=== PATIENT | female | born 1950 | race Caucasian/White ===

== ENCOUNTER 2019-12-15 07:50 | Outpatient (CLI) | payer MEDICARE, SELFPAY ==
[2019-12-15 08:28] LABS: Alanine Aminotransferase 28 U/L (4-35); Albumin Level 4.2 g/dL (3.5-5.1); Alkaline Phosphatase 104 U/L (38-126); Aspartate Amino Transferase 35 U/L (14-36); Bilirubin,Total 0.6 mg/dL (0.2-1.3); Blood Urea Nitrogen 18 mg/dL (7-17); Calcium 9.2 mg/dL (8.4-10.2); Carbon Dioxide 30 mmol/L (22-30); Chloride 100 mmol/L (98-107); Estimated Glomerular Filt Rate > 60; Glucose 101 mg/dL (65-105); Potassium 3.6 mmol/L (3.4-5.0); Sodium 137 mmol/L (137-145)
[2019-12-15 08:39] LABS: Basophils Absolute Auto 0.1 K/mm3 (0.0-0.1); Basophils Percent Auto 0.7 % (0.2-1.2); Eosinophils Absolute Auto 0.3 K/mm3 (0-0.3); Eosinophils Percent Auto 3.6 % (0-4.4); Hematocrit 42.5 % (37.0-47.0); Hemoglobin 14.3 g/dL (12.0-15.0); Immature Granulocyte Absolute 0.02 K/mm3 (0.00-0.031); Immature Granulocyte Percent A 0.3 % (0-0.5); Lymphocytes Absolute Auto 1.85 K/mm3 (0.9-3.2); Mean Corpuscular HGB Conc 33.6 g/dl (32-36); Mean Corpuscular Hemoglobin 29.9 pg (26-34); Mean Corpuscular Volume 88.9 fl (80-100); Mean Platelet Volume 9.4 fl (7.4-10.4); Monocytes Absolute Auto 0.6 K/mm3 (0.1-0.6); Monocytes Percent Auto 7.7 % (2.6-8.5); Neutrophils Absolute Auto 4.7 K/mm3 (1.3-6.7); Neutrophils Percent Auto 62.7 % (45.5-73.1); Platelet Count Result 388 k/mm3 (150-375); Red Blood Count 4.78 M/mm3 (4.2-5.4); Red Cell Distribution Width 12.6 % (11.5-14.5); White Blood Count 7.4 K/mm3 (4.5-10.0)
== END 2019-12-15 07:51 | disposition home or self-care (01) ==
PROVIDERS: PCP Family Medicine; Visit Provider Family Medicine
DX: E78.2 Mixed hyperlipidemia (principal); I10 Essential (primary) hypertension; Z78.0 Asymptomatic menopausal state
CPT/HCPCS: 36415; 80053; 85025

== ENCOUNTER 2020-12-19 02:26 | Day surgery (SDC) | payer MEDICARE, SELFPAY ==
[2020-12-07 08:54] VITALS: BMI 27.4
--- NOTE | 2020-12-18 09:36 | WPDANESEPPF ---
Anes - Initial Pre Proc Eval Procedure: Operation Date: 12/19/20 11:30 Proposed Procedures p Esophagogastroduodenoscopy - Baldemar Barrios MD Date/Time: 12/18/20 09:36 Surgeon: Baldemar Barrios MD Pre Op Diagnosis: dysphagia, Schatzki's Ring Patient Data Age: 70 Gender: F Height: 1.57 m Weight: 68.1 kg Allergies Allergy/AdvReac Type Severity Reaction Status Date / Time No Known Allergies Allergy Verified 12/19/20 07:47 Home Medications Medication Instructions Recorded Confirmed Type albuterol sulfate 90 mcg/actuation 2 puff INHALATION Q4H PRN gm 05/19/19 12/19/20 History aerosol inhaler fexofenadine 60 mg tablet 60 mg PO Q12H 05/19/19 12/19/20 History beclomethasone dipropionate 80 2 inhalation INHALATION Q12H #31.8 01/26/20 12/19/20 Rx mcg/actuation HFA breath activated gm aerosol fluticasone propionate 50 1 spray NASAL DAILY #47.4 ml 01/26/20 12/19/20 Rx mcg/actuation nasal spray,suspension atorvastatin 10 mg tablet See Rx Instructions .ROUTE 08/02/20 12/19/20 Rx .COMPLEX #90 tablet hydrochlorothiazide 25 mg tablet See Rx Instructions .ROUTE 10/30/20 12/19/20 Rx .COMPLEX #90 tablet montelukast [Singulair] See Rx Instructions .ROUTE .COMPLEX 12/07/20 12/19/20 History Patient hx anesthesia problems: none Family hx anesthesia problems: none PMFSH Past Medical History Medical History Burn (~1970) Essential (primary) hypertension Fractured rib (~1967) Mild persistent asthma, uncomplicated Overweight Surgical History Surgical History H/O section (~1979) History of carpal tunnel release (~2011) History of colonoscopy (~10/07/07) History of hysterectomy (~2018) vag hys/ ovaries out Family History Family History Sibling Age: 71 Heart disease Sibling Age: 72 No problems noted. Grandparent Diabetes mellitus Father Hypertension Family history of elevated blood lipids Acute myocardial infarction Family history of coronary artery disease Family history of heart disease in male family member before age 55 Mother Hypertension Family history of elevated blood lipids Carcinoma of colon Family history of coronary artery disease Family history of heart disease in male family member before age 55 Sibling Hypertension Family history of elevated blood lipids Social History Social History Smoking packs per day: 1 Smoking cigarettes per day: 20.0 Smoking status: Former smoker Tobacco type: cigarettes Alcohol intake: current Substance use type: does not use Living arrangements: with family Gender identity (if verbalized by the patient): Female Anes - Eval Final PreProcedure Day of Procedure 12/18/20 09:36 Patient weight: overweight Heart: regular rate and rhythm Lungs: clear to auscultation and normal air movement Airway: Mallampati scale class II Neurological: alert and oriented Last oral intake: >/= 8 hours ASA classification: III Emergent: no Anesthetic plan: proceed Anesthesia type and monitoring: general GIVS and standard monitoring Informed Consent: The patient's anesthetic plan and its attendant risks and benefits were discussed with the patient/family/POA. Questions were solicited and answers provided to the satisfaction of the patient/family/POA.
[2020-12-19 07:49] VITALS: BP 141/80; PULSE 66; RESP 17; TEMP 35.7; O2SAT 99
[2020-12-19] MEDS: LACTATED RINGERS 1,000 ML 150 ML IV CONT (07:59)
--- NOTE | 2020-12-19 08:39 | PM.HPGS ---
History of Present Illness History of Present Illness Consent: Risks, benefits, and alternatives have been discussed and questions answered. Patient agrees to proceed with procedure. Chief complaint: dysphagia, Schatzki's Ring Narrative: Gustavo Herrera is a 70 year old female who has the sensation of difficulty swallowing. Carrots in particular will give her difficulty. Also hot cold beverages seem to cause her throat or esophagus to constrict, given her the sensation that there is an air bubble in there. she has not have to stop eating due to actual food impaction. She has an almost constant sensation of discomfort or burning in her throat. When she had a Schatzki's ring that we dilated a few years ago, all these symptoms had resolved afterwards Review of Systems Review of Systems: All systems reviewed & are unremarkable except as noted in HPI and below PMFSH Past Medical History Medical History Burn (~1970) Essential (primary) hypertension Fractured rib (~1967) Mild persistent asthma, uncomplicated Overweight Surgical History Surgical History H/O section (~1979) History of carpal tunnel release (~2011) History of colonoscopy (~10/07/07) History of hysterectomy (~2018) vag hys/ ovaries out Family History Family History Sibling Age: 71 Heart disease Sibling Age: 73 No problems noted. Grandparent Diabetes mellitus Father Hypertension Family history of elevated blood lipids Acute myocardial infarction Family history of coronary artery disease Family history of heart disease in male family member before age 55 Mother Hypertension Family history of elevated blood lipids Carcinoma of colon Family history of coronary artery disease Family history of heart disease in male family member before age 55 Sibling Hypertension Family history of elevated blood lipids Social History Social History Smoking packs per day: 1 Smoking cigarettes per day: 20.0 Smoking status: Former smoker Tobacco type: cigarettes Alcohol intake: current Substance use type: does not use Living arrangements: with family Gender identity (if verbalized by the patient): Female Meds Home Medications and Allergies Home Medications Medication Instructions Recorded Confirmed Type albuterol sulfate 90 mcg/actuation 2 puff INHALATION Q4H PRN gm 05/19/19 12/19/20 History aerosol inhaler fexofenadine 60 mg tablet 60 mg PO Q12H 05/19/19 12/19/20 History beclomethasone dipropionate 80 2 inhalation INHALATION Q12H #31.8 01/26/20 12/19/20 Rx mcg/actuation HFA breath activated gm aerosol fluticasone propionate 50 1 spray NASAL DAILY #47.4 ml 01/26/20 12/19/20 Rx mcg/actuation nasal spray,suspension atorvastatin 10 mg tablet See Rx Instructions .ROUTE 08/02/20 12/19/20 Rx .COMPLEX #90 tablet hydrochlorothiazide 25 mg tablet See Rx Instructions .ROUTE 10/30/20 12/19/20 Rx .COMPLEX #90 tablet montelukast [Singulair] See Rx Instructions .ROUTE .COMPLEX 12/07/20 12/19/20 History Allergies Allergy/AdvReac Type Severity Reaction Status Date / Time No Known Allergies Allergy Verified 12/19/20 07:47 Vital Signs Vital Signs - 24 hr 12/19/20 07:49 Temperature 35.7 C L Pulse Rate 66 Respiratory Rate 17 Blood Pressure 141/80 H Pulse Oximetry 99 Exam Const: General: alert Orientation/consciousness: patient oriented x3 Resp: Auscultation: clear to auscultation bilaterally Cardio: Rhythm: regular rhythm GI: GI Palp: Yes Soft to palpation and No Tenderness to palpation present (GI) Neuro: General: patient oriented x3 Assessment and Plan Assessment and plan (1) Dysphagia: Code(s): R13.10 - Dysphagia, unspecified Status: Acute
[2020-12-19 09:21] VITALS: BP 92/77; PULSE 64; RESP 21; O2SAT 97
[2020-12-19 09:31] VITALS: BP 119/69; PULSE 69; RESP 20; O2SAT 98
[2020-12-19 09:41] VITALS: BP 134/78; PULSE 58; RESP 20; O2SAT 99
== END 2020-12-19 09:48 | disposition home or self-care (01) ==
PROVIDERS: PCP Family Medicine; Visit Provider Internal Medicine Gastroenterology
PROC: 0DJ08ZZ Inspection of Upper Intestinal Tract, Via Natural or Artificial Opening Endoscopic (ICD-10-PCS; CPT 43235; principal; 2020-12-19 09:00)
DX: K22.2 Esophageal obstruction (principal); K44.9 Diaphragmatic hernia without obstruction or gangrene; K25.9 Gastric ulcer, unspecified as acute or chronic, without hemorrhage or perforation; I10 Essential (primary) hypertension; J45.30 Mild persistent asthma, uncomplicated; Z79.51 Long term (current) use of inhaled steroids; Z87.891 Personal history of nicotine dependence
CPT/HCPCS: 43239; 43249; 87081; C1726; J2704; J7120

== ENCOUNTER 2021-02-14 01:41 | Day surgery (SDC) | payer MEDICARE, SELFPAY ==
[2021-02-08 14:59] VITALS: BMI 28.6
--- NOTE | 2021-02-13 19:41 | PM.HPGS ---
History of Present Illness History of Present Illness Consent: Risks, benefits, and alternatives have been discussed and questions answered. Patient agrees to proceed with procedure. Chief complaint: Gastric Ulcer K25.9 Narrative: Gustavo Herrera is a 70 year old female returns for follow up EGD due to multiple gastric ulcers found 2 months ago. Review of Systems Review of Systems: All systems reviewed & are unremarkable except as noted in HPI and below PMFSH Past Medical History Medical History Burn (~1970) Essential (primary) hypertension Fractured rib (~1967) Mild persistent asthma, uncomplicated Overweight Surgical History Surgical History H/O section (~1979) History of carpal tunnel release (~2011) History of colonoscopy (~10/07/07) History of hysterectomy (~2018) vag hys/ ovaries out Family History Family History Sibling Age: 72 Heart disease Sibling Age: 73 No problems noted. Grandparent Diabetes mellitus Father Hypertension Family history of elevated blood lipids Acute myocardial infarction Family history of coronary artery disease Family history of heart disease in male family member before age 55 Mother Hypertension Family history of elevated blood lipids Carcinoma of colon Family history of coronary artery disease Family history of heart disease in male family member before age 55 Sibling Hypertension Family history of elevated blood lipids Social History Social History Smoking packs per day: 1 Smoking cigarettes per day: 20.0 Smoking status: Former smoker Tobacco type: cigarettes Alcohol intake: current Substance use: never Substance use type: does not use Living arrangements: with family Gender identity (if verbalized by the patient): Female Spiritual care concerns: No Meds Home Medications and Allergies Home Medications Medication Instructions Recorded Confirmed Type albuterol sulfate 90 mcg/actuation 2 puff INHALATION Q4H PRN gm 05/19/19 02/08/21 History aerosol inhaler fexofenadine 60 mg tablet 60 mg PO DAILY 05/19/19 02/08/21 History fluticasone propionate 50 1 spray NASAL DAILY #47.4 ml 01/26/20 02/08/21 Rx mcg/actuation nasal spray,suspension pantoprazole 40 mg tablet,delayed 40 mg PO QAM 28 Days #30 tablet 02/01/21 02/08/21 Rx release Qvar RediHaler 2 inhalation INHALATION DAILY 02/08/21 02/08/21 History atorvastatin 10 mg PO DAILY 02/08/21 02/08/21 History hydrochlorothiazide 25 mg PO DAILY 02/08/21 02/08/21 History montelukast 10 mg PO DAILY 02/08/21 02/08/21 History Allergies Allergy/AdvReac Type Severity Reaction Status Date / Time No Known Allergies Allergy Verified 02/14/21 07:19 Exam Const: General: alert Orientation/consciousness: patient oriented x3 Resp: Auscultation: clear to auscultation bilaterally Cardio: Rhythm: regular rhythm GI: GI Palp: Yes Soft to palpation and No Tenderness to palpation present (GI) Neuro: General: patient oriented x3 Assessment and Plan Assessment and plan (1) Gastric ulcer: Code(s): K25.9 - Gastric ulcer, unspecified as acute or chronic, without hemorrhage or perforation Status: Acute Assessment and Plan: EGD with possible biopsy or dilatation or cautery.
[2021-02-14 07:20] VITALS: BP 144/78; PULSE 63; RESP 18; TEMP 36.3; O2SAT 100; BMI 29.5
[2021-02-14] MEDS: LACTATED RINGERS 1,000 ML 150 ML IV CONT (07:29)
--- NOTE | 2021-02-14 07:59 | WPDANESEPPF ---
Anes - Initial Pre Proc Eval Procedure: Operation Date: 02/14/21 08:30 Proposed Procedures p Esophagogastroduodenoscopy - Baldemar Barrios MD Date/Time: 02/14/21 07:59 Surgeon: Baldemar Barrios MD Pre Op Diagnosis: Gastric Ulcer K25.9 Patient Data Age: 70 Gender: F Height: 1.57 m Weight: 73.4 kg Last Vital Signs Temp 36.3 C L 02/14/21 07:20 Pulse 63 02/14/21 07:20 Resp 18 02/14/21 07:20 BP 144/78 H 02/14/21 07:20 Pulse Ox 100 02/14/21 07:20 Allergies Allergy/AdvReac Type Severity Reaction Status Date / Time No Known Allergies Allergy Verified 02/14/21 07:19 Home Medications Medication Instructions Recorded Confirmed Type albuterol sulfate 90 mcg/actuation 2 puff INHALATION Q4H PRN gm 05/19/19 02/08/21 History aerosol inhaler fexofenadine 60 mg tablet 60 mg PO DAILY 05/19/19 02/08/21 History fluticasone propionate 50 1 spray NASAL DAILY #47.4 ml 01/26/20 02/08/21 Rx mcg/actuation nasal spray,suspension pantoprazole 40 mg tablet,delayed 40 mg PO QAM 28 Days #30 tablet 02/01/21 02/08/21 Rx release Qvar RediHaler 2 inhalation INHALATION DAILY 02/08/21 02/08/21 History atorvastatin 10 mg PO DAILY 02/08/21 02/08/21 History hydrochlorothiazide 25 mg PO DAILY 02/08/21 02/08/21 History montelukast 10 mg PO DAILY 02/08/21 02/08/21 History Patient hx anesthesia problems: none Family hx anesthesia problems: none PMFSH Past Medical History Medical History Burn (~1970) Essential (primary) hypertension Fractured rib (~1967) Mild persistent asthma, uncomplicated Overweight Surgical History Surgical History H/O section (~1979) History of carpal tunnel release (~2011) History of colonoscopy (~10/07/07) History of hysterectomy (~2019) vag hys/ ovaries out Family History Family History Sibling Age: 71 Heart disease Sibling Age: 73 No problems noted. Grandparent Diabetes mellitus Father Hypertension Family history of elevated blood lipids Acute myocardial infarction Family history of coronary artery disease Family history of heart disease in male family member before age 55 Mother Hypertension Family history of elevated blood lipids Carcinoma of colon Family history of coronary artery disease Family history of heart disease in male family member before age 55 Sibling Hypertension Family history of elevated blood lipids Social History Social History Smoking packs per day: 1 Smoking cigarettes per day: 20.0 Smoking status: Former smoker Tobacco type: cigarettes Alcohol intake: current Substance use: never Substance use type: does not use Living arrangements: with family Gender identity (if verbalized by the patient): Female Spiritual care concerns: No Anes - Eval Final PreProcedure Day of Procedure 02/14/21 07:59 Patient weight: obese Heart: regular rate and rhythm Lungs: clear to auscultation and normal air movement Airway: Mallampati scale class II Neurological: alert and oriented Last oral intake: >/= 8 hours ASA classification: III Emergent: no Anesthetic plan: proceed Anesthesia type and monitoring: general GIVS Informed Consent: The patient's anesthetic plan and its attendant risks and benefits were discussed with the patient/family/POA. Questions were solicited and answers provided to the satisfaction of the patient/family/POA.
[2021-02-14] MEDS: BENZOCAINE (*SP) 60 ML SPRAY CAN (HURRICAINE) 1 SPRAY MUCOUS MEM (08:28)
[2021-02-14 08:36] VITALS: BP 102/65; PULSE 66; RESP 19; O2SAT 97
[2021-02-14 08:46] VITALS: BP 105/62; PULSE 64; RESP 19; O2SAT 94
[2021-02-14 08:56] VITALS: BP 126/67; PULSE 58; RESP 18; O2SAT 96
== END 2021-02-14 09:14 | disposition home or self-care (01) ==
PROVIDERS: PCP Family Medicine; Visit Provider Internal Medicine Gastroenterology
PROC: 0DJ08ZZ Inspection of Upper Intestinal Tract, Via Natural or Artificial Opening Endoscopic (ICD-10-PCS; CPT 43235; principal; 2021-02-14 08:30)
DX: Z09 Encounter for follow-up examination after completed treatment for conditions other than malignant neoplasm (principal); K29.60 Other gastritis without bleeding; K29.70 Gastritis, unspecified, without bleeding; K22.2 Esophageal obstruction; K44.9 Diaphragmatic hernia without obstruction or gangrene; Z87.11 Personal history of peptic ulcer disease; J45.30 Mild persistent asthma, uncomplicated; I10 Essential (primary) hypertension; Z79.51 Long term (current) use of inhaled steroids; Z87.891 Personal history of nicotine dependence; E66.9 Obesity, unspecified; Z68.29 Body mass index [BMI] 29.0-29.9, adult
CPT/HCPCS: 43235; J2001; J2704; J7120

== ENCOUNTER 2021-02-19 07:22 | Outpatient (CLI) | payer MEDICARE, SELFPAY ==
[2021-02-19 07:45] LABS: Basophils Percent Auto 0.6 % (0.2-1.2); Eosinophils Absolute Auto 0.2 K/mm3 (0-0.3); Eosinophils Percent Auto 3.9 % (0-4.4); Hematocrit 40.6 % (37.0-47.0); Hemoglobin 12.9 g/dL (12.0-15.0); Immature Granulocyte Absolute 0.03 K/mm3 (0.00-0.031); Immature Granulocyte Percent A 0.5 % (0-0.5); Lymphocytes Absolute Auto 1.82 K/mm3 (0.9-3.2); Lymphocytes Percent Auto 29.4 % (18.3-44.2); Mean Corpuscular HGB Conc 31.8 g/dl (32-36); Mean Corpuscular Volume 81.7 fl (80-100); Mean Platelet Volume 8.9 fl (7.4-10.4); Monocytes Absolute Auto 0.6 K/mm3 (0.1-0.6); Monocytes Percent Auto 9.4 % (2.6-8.5); Neutrophils Absolute Auto 3.5 K/mm3 (1.3-6.7); Neutrophils Percent Auto 56.2 % (45.5-73.1); Platelet Count Result 424 k/mm3 (150-375); Red Blood Count 4.97 M/mm3 (4.2-5.4); Red Cell Distribution Width 13.7 % (11.5-14.5); White Blood Count 6.2 K/mm3 (4.5-10.0)
[2021-02-19 08:03] LABS: Alanine Aminotransferase 26 U/L (4-35); Albumin Level 4.4 g/dL (3.5-5.1); Alkaline Phosphatase 118 U/L (38-126); Anion Gap 9 mmol/L (8-16); Aspartate Amino Transferase 32 U/L (14-36); Bilirubin,Total 0.5 mg/dL (0.2-1.3); Blood Urea Nitrogen 22 mg/dL (7-17); Calcium 9.7 mg/dL (8.4-10.2); Carbon Dioxide 30 mmol/L (22-30); Chloride 99 mmol/L (98-107); Cholesterol 162 mg/dL (0-200); Estimated Glomerular Filt Rate > 60; Glucose 112 mg/dL (65-110); HDL Direct 52 mg/dL; Potassium 3.6 mmol/L (3.4-5.0); Sodium 138 mmol/L (137-145); Triglycerides 123 mg/dL (<150)
[2021-02-19 08:14] LABS: LDL Cholesterol Direct 79 mg/dL
== END 2021-02-19 07:23 | disposition home or self-care (01) ==
PROVIDERS: PCP Family Medicine; Visit Provider Physician Assistant Medical
DX: E78.2 Mixed hyperlipidemia (principal); I10 Essential (primary) hypertension; Z78.0 Asymptomatic menopausal state
CPT/HCPCS: 36415; 80053; 80061; 84443; 85025

== ENCOUNTER 2021-03-01 09:38 | Outpatient (CLI) | payer MEDICARE, SELFPAY ==
--- NOTE | ~2021-03-01 | MM_ITS ---
EXAMINATION: MM screening [facility] BI w marek HISTORY: Screening TECHNIQUE: Craniocaudal and mediolateral oblique 3-D tomosynthesis images were obtained and synthetic 2-D images were generated. CAD analysis was submitted and interpreted. COMPARISON: Comparison to multiple prior studies sequentially, with oldest reviewed study dated 03/02. BREAST PARENCHYMAL COMPOSITION: Breast composed of scattered areas of fibroglandular density. FINDINGS: There is no evidence of suspicious mass, calcification, or architectural distortion to sugg est malignancy in either breast. There has been no suspicious interval change. IMPRESSION: 1. No mammographic evidence of malignancy. 2. Recommend routine screening mammography in one year. BI-RADS Category 1: Negative Reviewed, dictated and finalized at location A.
--- NOTE | ~2021-03-01 | DEXA_ITS ---
Bone Density Report Name: Gustavo Herrera Age: 70 Sex: Female Ethnicity: White Date of : 1950 Indication: postmenopausal; inflammatory bowel disease; asthma or emphysema; hysterectomy; Referring Provider: Dez Ruiz Study: Bone densitometry was performed. Exam Date: March 01, 2021 Accession number: [id number] Bone Density: Region BMD T-score Z-score Classification AP Spine (L1-L4) 1.097 0.5 2.5 Normal Femoral Neck (Left) 0.817 -0.3 1.4 Normal Total Hip (Left) 0.981 0.3 1.8 Normal Total Hip Bilateral Avg 0.973 0.3 1.7 Normal Femoral Neck (Right) 0.871 0.2 1.9 Normal Total Hip (Right) 0.964 0.2 1.6 Normal World Health Organization criteria for BMD impression classify patients as: Normal (T-score at or above -1.0), Osteopenia (T-score between -1.0 and -2.5), or Osteoporosis (T-score at or below -2.5). 10-year Fracture Risk: FRAX not reported because: All T-scores for Spine Total, Hip Total, Femoral Neck at or above -1.0 Previous Exams: Region Exam Age BMD T-score BMD Change BMD Change Date g/cm2 vs Baseline vs Previous AP Spine(L1-L4) 03/01/2021 70 1.097 0.5 -0.071(-6.1%)# 0.062(6.0%)* 11/20/2014 64 1.035 -0.1 -0.134(-11.4%) -0.076(-6.8%)# 09/06/2010 60 1.111 0.6 -0.058(-5.0%)* -0.063(-5.4%)* 10/08/2007 57 1.174 1.2 0.005(0.4%) 0.005(0.4%) 09/25/2003 53 1.169 1.1 Total Hip(Left) 03/01/2021 70 0.981 0.3 -0.054(-5.2%)# -0.005(-0.5%) 11/20/2014 64 0.986 0.4 -0.050(-4.8%)# -0.049(-4.7%)# 09/06/2010 60 1.035 0.8 -0.001(-0.1%) 0.010(1.0%) 10/08/2007 57 1.025 0.7 -0.010(-1.0%) -0.010(-1.0%) 09/25/2003 53 1.036 0.8 Total Hip(Right) 03/01/2021 70 0.964 0.2 -0.063(-6.1%)# -0.019(-1.9%) 11/20/2014 64 0.983 0.3 -0.044(-4.3%)# -0.023(-2.3%)# 09/06/2010 60 1.006 0.5 -0.020(-2.0%) -0.017(-1.6%) 10/08/2007 57 1.023 0.7 -0.004(-0.4%) -0.004(-0.4%) 09/25/2003 53 1.027 0.7 *Denotes significance at 95% confidence level, LSC for AP Spine = 0.022 g/cm2, LSC for Total Hip = 0.027 g/cm2 Clinical Information Provided by Patient: Has the following medical conditions: Asthma or Emphysema, Inflammatory bowel diseases, Hysterectomy Patient maximum height was 62 Menopause Age: 52 Onset of menses at age 13 Number of children 1 Impression: The patient has normal bone mass. No significant bone loss was observed. Discussion: BON
== END 2021-03-01 09:39 | disposition home or self-care (01) ==
PROVIDERS: PCP Family Medicine; Visit Provider Physician Assistant Medical
DX: Z12.31 Encounter for screening mammogram for malignant neoplasm of breast (principal); Z78.0 Asymptomatic menopausal state
CPT/HCPCS: 77063; 77067; 77080

== ENCOUNTER 2021-03-04 11:47 | Outpatient (CLI) | payer MEDICARE, SELFPAY ==
[2021-03-04 13:07] LABS: Hemoglobin A1C 5.9 % (<5.7)
== END 2021-03-04 11:48 | disposition home or self-care (01) ==
LOC: ANHLAB 11:53
PROVIDERS: PCP Family Medicine; Visit Provider Physician Assistant Medical
DX: R73.09 Other abnormal glucose (principal)
CPT/HCPCS: 36415; 83036

== ENCOUNTER 2021-10-07 07:19 | Outpatient (CLI) | payer MEDICARE, SELFPAY | END 2021-10-07 07:20 | disposition home or self-care (01) | PROVIDERS: PCP Family Medicine; Visit Provider Family Medicine | DX: R73.03 Prediabetes (principal) | CPT/HCPCS: 36415; 83036 ==

== ENCOUNTER 2022-02-27 07:28 | Outpatient (CLI) | payer MEDICARE, SELFPAY ==
[2022-02-27 07:38] LABS: Basophils Absolute Auto 0.1 K/mm3 (0.0-0.1); Basophils Percent Auto 0.9 % (0.2-1.2); Eosinophils Absolute Auto 0.3 K/mm3 (0-0.3); Eosinophils Percent Auto 4.7 % (0-4.4); Hematocrit 40.6 % (37.0-47.0); Hemoglobin 13.2 g/dL (12.0-15.0); Immature Granulocyte Absolute 0.05 K/mm3 (0.00-0.031); Immature Granulocyte Percent A 0.8 % (0-0.5); Lymphocytes Absolute Auto 1.93 K/mm3 (0.9-3.2); Lymphocytes Percent Auto 29.1 % (18.3-44.2); Mean Corpuscular HGB Conc 32.5 g/dl (32-36); Mean Platelet Volume 8.7 fl (7.4-10.4); Monocytes Absolute Auto 0.5 K/mm3 (0.1-0.6); Neutrophils Absolute Auto 3.8 K/mm3 (1.3-6.7); Neutrophils Percent Auto 56.5 % (45.5-73.1); Platelet Count Result 389 k/mm3 (150-375); Red Blood Count 4.89 M/mm3 (4.2-5.4); Red Cell Distribution Width 14.4 % (11.5-14.5); White Blood Count 6.6 K/mm3 (4.5-10.0)
[2022-02-27 07:49] LABS: Hemoglobin A1C 6.1 % (<5.7)
[2022-02-27 07:55] LABS: Alanine Aminotransferase 29 U/L (6-35); Albumin Level 4.2 g/dL (3.5-5.1); Alkaline Phosphatase 108 U/L (38-126); Anion Gap 9 mmol/L (8-16); Aspartate Amino Transferase 30 U/L (14-36); Bilirubin,Total 0.5 mg/dL (0.2-1.3); Blood Urea Nitrogen 19 mg/dL (7-17); Calcium 9.3 mg/dL (8.4-10.2); Carbon Dioxide 28 mmol/L (22-30); Chloride 100 mmol/L (98-107); Cholesterol 148 mg/dL (0-200); Estimated Glomerular Filt Rate > 60; Glucose 111 mg/dL (65-110); HDL Direct 52 mg/dL; Potassium 3.6 mmol/L (3.4-5.0); Sodium 137 mmol/L (137-145); Triglycerides 107 mg/dL (<150)
[2022-02-27 08:06] LABS: LDL Cholesterol Direct 76 mg/dL
[2022-02-27 08:22] LABS: Vitamin D 25 Hydroxy 47.6 ng/mL
[2022-02-27 08:47] LABS: Hepatitis C Virus Antibody Negative (Negative)
== END 2022-02-27 07:29 | disposition home or self-care (01) ==
PROVIDERS: PCP Family Medicine; Visit Provider Physician Assistant
DX: K25.9 Gastric ulcer, unspecified as acute or chronic, without hemorrhage or perforation (principal); Z79.899 Other long term (current) drug therapy; R73.03 Prediabetes; Z11.59 Encounter for screening for other viral diseases; E78.2 Mixed hyperlipidemia
CPT/HCPCS: 36415; 80053; 80061; 82306; 82607; 82728; 83036; 85025; 86803

== ENCOUNTER 2023-03-24 06:57 | Outpatient (CLI) | payer MEDICARE, SELFPAY ==
[2023-03-24 07:45] LABS: Basophils Absolute Auto 0.1 K/mm3 (0.0-0.1); Basophils Percent Auto 0.8 % (0.2-1.2); Eosinophils Absolute Auto 0.3 K/mm3 (0-0.3); Eosinophils Percent Auto 4.5 % (0-4.4); Hematocrit 43.1 % (37.0-47.0); Hemoglobin 13.3 g/dL (12.0-15.0); Immature Granulocyte Absolute 0.03 K/mm3 (0.00-0.031); Immature Granulocyte Percent A 0.5 % (0-0.5); Lymphocytes Absolute Auto 1.96 K/mm3 (0.9-3.2); Lymphocytes Percent Auto 31.7 % (18.3-44.2); Mean Corpuscular HGB Conc 30.9 g/dl (32-36); Mean Corpuscular Hemoglobin 25.2 pg (26-34); Mean Corpuscular Volume 81.6 fl (80-100); Mean Platelet Volume 9.5 fl (7.4-10.4); Monocytes Absolute Auto 0.5 K/mm3 (0.1-0.6); Monocytes Percent Auto 8.1 % (2.6-8.5); Neutrophils Absolute Auto 3.4 K/mm3 (1.3-6.7); Neutrophils Percent Auto 54.4 % (45.5-73.1); Platelet Count Result 407 k/mm3 (150-375); Red Blood Count 5.28 M/mm3 (4.2-5.4); Red Cell Distribution Width 14.9 % (11.5-14.5); White Blood Count 6.2 K/mm3 (4.5-10.0)
[2023-03-24 09:09] LABS: Alanine Aminotransferase 29 U/L (6-35); Albumin Level 4.3 g/dL (3.5-5.1); Alkaline Phosphatase 107 U/L (38-126); Anion Gap 8 mmol/L (8-16); Aspartate Amino Transferase 33 U/L (14-36); Bilirubin,Total 0.6 mg/dL (0.2-1.3); Blood Urea Nitrogen 20 mg/dL (7-17); Calcium 9.4 mg/dL (8.4-10.2); Carbon Dioxide 30 mmol/L (22-30); Chloride 98 mmol/L (98-107); Cholesterol 149 mg/dL (0-200); Estimated Glomerular Filt Rate > 60; Glucose 115 mg/dL (65-110); HDL Direct 49 mg/dL; Sodium 136 mmol/L (137-145); Triglycerides 102 mg/dL (<150)
[2023-03-24 09:17] LABS: LDL Cholesterol Direct 80 mg/dL
[2023-03-24 10:00] LABS: Folic Acid 11.6 ng/mL (2.76->20)
[2023-03-24 10:22] LABS: Hemoglobin A1C 6.1 % (<5.7)
[2023-03-27 12:48] LABS: Vitamin D 1,25 (OH)2 Total 33 pg/mL (18-72); Vitamin D2 1,25 (OH)2 <8 pg/mL; Vitamin D3 1,25 (OH)2 33 pg/mL
== END 2023-03-24 06:58 | disposition home or self-care (01) ==
PROVIDERS: PCP Family Medicine; Visit Provider Physician Assistant
DX: E78.2 Mixed hyperlipidemia (principal); J45.30 Mild persistent asthma, uncomplicated; E66.3 Overweight; I10 Essential (primary) hypertension; R73.03 Prediabetes; Z79.899 Other long term (current) drug therapy; E55.9 Vitamin D deficiency, unspecified
CPT/HCPCS: 36415; 80053; 80061; 82607; 82652; 82746; 83036; 84443; 85025

== ENCOUNTER 2023-05-15 07:09 | Outpatient (CLI) | payer MEDICARE, SELFPAY ==
[2023-05-15 08:07] LABS: Anion Gap 7 mmol/L (8-16); Blood Urea Nitrogen 16 mg/dL (7-17); Calcium 9.4 mg/dL (8.4-10.2); Carbon Dioxide 26 mmol/L (22-30); Chloride 106 mmol/L (98-107); Estimated Glomerular Filt Rate > 60; Glucose 91 mg/dL (65-110); Potassium 4.1 mmol/L (3.4-5.0); Sodium 139 mmol/L (137-145)
[2023-05-15 08:40] LABS: Vitamin D 25 Hydroxy 36.6 ng/mL
== END 2023-05-15 07:10 | disposition home or self-care (01) ==
LOC: ANHLAB 07:12
PROVIDERS: Nurse Practitioner Family; Physician Assistant; PCP Family Medicine; Visit Provider Family Medicine
DX: E55.9 Vitamin D deficiency, unspecified (principal); E87.1 Hypo-osmolality and hyponatremia; E87.6 Hypokalemia
CPT/HCPCS: 36415; 80048; 82306

== ENCOUNTER 2023-09-07 08:15 | Outpatient (CLI) | payer MEDICARE, SELFPAY ==
--- NOTE | ~2023-09-07 | MM_ITS ---
EXAMINATION: MM screening [facility] BI w [facility] HISTORY: Screening mammogram TECHNIQUE: Craniocaudal and mediolateral oblique 3-D tomosynthesis images were obtained and synthetic 2-D images were generated. CAD analysis was submitted and interpreted. COMPARISON: 03/01/2021 bilateral screening mammogram BREAST PARENCHYMAL COMPOSITION: There are scattered areas of fibroglandular density. FINDINGS: There is no evidence of suspicious mass, calcification, or architectural distortion to sugg est malignancy in either breast. There has been no suspicious interval change. IMPRESSION: 1. No mammographic evidence of malignancy. 2. Recommend routine screening mammography in one year. BI-RADS Category 1: Negative Reviewed, dictated and finalized at location B.
== END 2023-09-07 08:16 | disposition home or self-care (01) ==
LOC: ANHIMG 08:18
PROVIDERS: PCP Family Medicine; Visit Provider Physician Assistant
DX: Z12.31 Encounter for screening mammogram for malignant neoplasm of breast (principal)
CPT/HCPCS: 77063; 77067

== ENCOUNTER 2024-05-23 17:52 | Emergency (ER) | payer MEDICARE, SELFPAY ==
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
[2024-05-23 18:01] VITALS: BP 138/82; PULSE 85; RESP 16; TEMP 36.8; O2SAT 98
== END 2024-05-23 18:15 | disposition home or self-care (01) ==
PROVIDERS: Emergency Provider Nurse Practitioner; PCP Family Medicine
DX: J40 Bronchitis, not specified as acute or chronic (principal); I10 Essential (primary) hypertension; Z87.891 Personal history of nicotine dependence
CPT/HCPCS: 99213; G0463

== ENCOUNTER 2024-10-27 07:00 | Outpatient (CLI) | payer MEDICARE, SELFPAY ==
--- OUTSIDE RECORDS SUMMARY | 2024-10-27 07:03 | XMS_ITS | Clinical Summary ---
Author Organization [facility] Address [address] [address] Phone Care Team Providers Care Currency Exchange Specialist Name Role Phone Unavailable Primary Care Provider Unavailabl e Social History Tobacco Use Types Packs/Day Years Used Date Smoking Tobacco: Never Assessed Comments Unknown Sex and Gender Information Value Date Recorded Sex Assigned at Not on file Legal Sex Female 9:59 PM CDT Gender Identity Not on file Sexual Orientation Not on file Plan of Treatment Health Maintenance Due Date Last Done Comments DEXA Bone Density 1950 Hepatitis C Virus (HCV) Screening 1950 TdaP Immunization 1950 Colonoscopy 1997 Colorectal Cancer Screening 1997 Cologuard 2002 Immunochemical Fecal Occult Blood 2002 Mammogram 2002 Pneumococcal Immunization (5 0+ years) (1 of 1 - PCV) 2002 Zoster Immunization (1 of 2) 2002 Influenza Immunization (#1) 2024 SARS-COV-2 Immunization ( - 2023-25 season) 2024 Respiratory Syncytial Virus (RSV) Immunization (Adult) (1 - 1-dose 75+ series) 2027 Hepatitis B Immunization Aged Out No longer eligible based on patient's age to complete this topic Meningococcal Immunization (ACWY) Aged Out No longer eligible based on patient's age to complete this topic Rotavirus Immunization Aged Out No lo nger eligible based on patient's age to complete this topic
--- OUTSIDE RECORDS SUMMARY | 2024-10-27 07:03 | XMS_ITS ---
Author Organization [facility] [facility] [place] ([address]) Address [address] [facility] [address] [place] [address] Care Team Providers Care Instructor Decorating Name Role Phone Yuliana Aldridge MD Primary Care Provider Unav Maggie Rasmussen Unavailable [phone] ZZ-Migration, Provider Unavailable Unavailab le REASON FOR VISIT [facility] Conversion Encounter Medications Medication SIG (Take, Route, Frequency, Duration) Notes Start Date End Date Status Alice Allergy 180 MG 1 tab(s) orally once a day Active PROAIR HFA 90 MCG/INH 2 PUFF(S) INHALED Q4-6 HOURS, PRN AND PER THE ASTHMA ACTION PLAN *Please review for potential replacement for e-prescription and drug interaction check* Active Qvar RediHaler 80 MCG/ACT 2 puff(s) inhaled bid Active Cefdinir 300 MG 1 cap(s) orally every 12 hours for 10 day(s) 02/05/2023 Active Singulair 10 MG 1 tab(s) orally once a day Active predniSONE 20 MG patient to call md for instruction on dose. orally Call MD for frequency for 30 day(s) Not-Taking Pantoprazole Sodium 40 MG 1 tab(s) orally once a day Active Montelukast Sodium 10 MG 1 tab(s) orally once a day Active Atorvastatin Calcium 10 MG 1 tab(s) orally once a day Active NASAL WASHES N/A DIRECTED INTRANASALLY NEEDED *Please review for potential replacement for e-prescription and drug interaction check* Active Flonase Allergy Relief 50 MCG/ACT 2 spray(s) intranasally (avoid nasal septum) once a day for 30 day(s) Active AEROCHAMBER MDI SPACER - MOUTHPIECE (ADULT) N/A DIRECTED PO PER ASTHMA ACTION PLAN for 30 DAY(S) *Please review for potential replacement for e-prescription and drug interaction check* 02/12/2023 Active Encounters Encounter Location Date Provider Diagnosis [facility] [address] [place] [place] [address] 11/14/2023 Provider JOSE-Migration Acute nasopharyngitis [common cold] J00 ; Mild persistent asthma, uncomplicated J45.30 and Allergic rhinitis due to pollen J30.1 Assessments Encounter Date Diagnosis (ICD Code) Assessment Notes Treatment Notes Treatment Clinical Notes Section Notes 11/14/2023 Acute nasopharyngitis [common cold] (ICD-10 - J00) 11/14/2023 Mild persistent asthma, uncomplicated (ICD-10 - J45.30) 11/14/2023 Allergic rhinitis due to pollen (ICD-10 - J30.1) Plan Of Treatment Medication Medication Name Sig Start Date Stop Date Notes Alice Allergy 180 MG 1 tab(s) orally once a day PROAIR HFA 90 MCG/INH 2 PUFF(S) INHALED Q4-6 HOURS, PRN AND PER THE ASTHMA ACTION PLAN *Please review for potential replacement for e-prescription and drug interaction check* Qvar RediHaler 80 MCG/ACT 2 puff(s) inhaled bid Cefdinir 300 MG 1 cap(s) orally ever y 12 hours for 10 day(s) 02/05/2023 Singulair 10 MG 1 tab(s) orally once a day NASAL WASHES N/A DIRECTED INTRANASALLY NEEDED *Please review fo r potential replacement for e-prescription and drug interaction check* AEROCHAMBER MDI SPACER - MOUTHPIECE (ADULT) N/A DIRECTED PO PER ASTHMA ACTION PLAN for 30 DAY(S) 02/12/2023 *Please review for potential replacement for e-prescription and drug interaction check* Progress Notes * Gustavo VALENZUELA ADOB:1950 (7 2 yo F)Acc No.[id number]:11/14/2023 Patient: Susanne ANNAMARIA Gustavo A Provider: Emily Wayne :1950 A ge:73 Y S ex:Female Date:11/14/2023 Address:[facility] [address] Pcp:Yuliana Aldridge MD Subjective: * Chief Complaints: * 1 . [facility] Conversion Encounter. * Medical History: * Medications: T aking Flonase Allergy Relief 50 MCG/ACT Suspension 2 spray(s) intranasally (avoid nasal septum) once a day , Taking Atorvastatin Calcium 10 MG Tablet 1 tab(s) orally once a day , Taking Montelukast Sodium 10 MG Tablet 1 tab(s) orally once a day , Taking Pantoprazole Sodium 40 MG Tablet Delayed Release 1 tab(s) orally once a day , Not-Taking/PRN predniSONE 20 MG Tablet patient to call md for instruction on dose. orally Call MD for frequency Objective: * Vitals: Assessment: * Assessment: 1. A cute nasopharyngitis [common cold] - J00 (Primary) 2 . M ild persistent asthma, uncomplicated - J45.30 3 . A llergic rhinitis due to pollen - J30.1? Plan: * Treatment: 2. M ild persistent asthma, uncomplicated Continue Qvar RediHaler Aerosol Breath Activated, 80 MCG/ACT, 2 puff(s), inhaled, bid; C ontinue PROAIR HFA AEROSOL, 90 MCG/INH, 2 PUFF(S), INHALED, Q4-6 HOURS, PRN AND PER THE ASTHMA ACTION PLAN, Notes to Pharmacist: *Please review for potential replacement for e-prescription and drug interaction check*; C ontinue Singulair Tablet, 10 MG, 1 tab(s), orally, once a day. 3. A llergic rhinitis due to pollen Continue NASAL WASHES 1 QUART OF STERILIZED TAP WATER OR DISTILLED WATER, 1 TSP NACL, 1 PINCH OF BAKING SODA, N/A, DIRECTED, INTRANASALLY, NEEDED, Notes to Pharmacist: *Please review for potential replacement for e-prescription and drug interaction check*; C ontinue Alice Allergy Tablet, 180 MG, 1 tab(s), orally, once a day. 4. O thers Start AEROCHAMBER MDI SPACER - MOUTHPIECE (ADULT) SPACER FOR MDI USE, N/A, DIRECTED, PO, PER ASTHMA ACTION PLAN, 30 DAY(S), 1, Refills 11, Notes to Pharmacist: *Please review for potential replacement for e-prescription and drug interaction check*. * Billing Information: * Visit Code: * Procedure Codes: * Electronic signature of Shelli GARCIA-Migration on 10/27/2024 at 07:03 AM CDT Sign off status: Pending * Provider: Emily modi Migration Date: 0 11/14/2023 Generated for Vita meza/Soledad/Raquel on: 0 10/27/2024 07:03 AM CDT
--- OUTSIDE RECORDS SUMMARY | 2024-10-27 07:03 | XMS_ITS | Data Portability ---
Author Organization [place] - [facility], Main Office [address] [place] [phone] Assessment Encounter Date Assessment Date Assessment LastModified by Organization Details LastModified Time 07/22/2019 07/22/2019 PAtients left shoulder was examined along with Xrays taken and reviewed with patient. Pt was offered a cortisone injection and declined. Will place order for PT and will have patient follow up in 6 weeks for recheck. Not available 07/22/2019 09:04:30 08/03/2019 08/03/2019 Assessment: Eval- Informed Consent: Patient has signed an informed consent which will be held in the patients file. Eval- Patient Education- Statement of Understanding: The patient/caregiver states that they understand the physical therapy treatment that is recommended, expected benefit of treatment, associated risk with and without treatment, as well as reasonable alternatives to the recommended treatment. Eval- Referral - Patient was referred to [facility] for evaluation and treatment of left shoulder bursitis, please see attached referral. Objective findings are consistent with patient complaints. This patientrequires skilled physical therapy intervention at this time to address functional impairments that are related to functional impairments , strength and muscle recruitment impairment , sitting postural dysfunction which will be addressed in the following treatment plan. Patient has good rehabilitation potential. Short -Term Goal(s) to be met by 08/17/19: 1. Patient to be indep with HEP. 2. Patient to reports >25% reduction in symptoms on a daily basis. Long-Term Goal(s) to be met by 09/01/19: 1. Patient to report no sharp pain with reaching overhead or across her body. 2. Patient to have a negative Trevino & Impingement test indicating no impingement. Plan Plan to see patient 2x per week for 4 weeks to achieve all stated goals. Plan of care will consist of hot/cold packs, therapeutic exercises, neuromuscular re-education,manua l therapy techniques, therapeutic activities, self-care/home management training, electrical stimulation(unatte nded), ultrasound, iontophoresis, to achieve all stated goals. Thank you for your referral. We will keep you abreast of this patient's status. Not available 08/03/2019 08:30:37 08/05/2019 08/05/2019 pt. is able to complete exercises without adverse effect. reviewed HEP with pt. as she was stretching the wrong side. pt. presents with trigger points along the medial border of scapula, that improves with MFR. continue with current POC [email or web address] Not available 08/05/2019 11:38:09 Plan of Treatment Reminders Order Date Submit Date Provider Last Modified By Organization Details Last Modified Time Details Appointments None recorded. Lab None recorded. Referral physical therapist referral 2019 020 [email or web address] Not available 0 11:49:59 Procedures None recorded. Surgeries None recorded. Imaging XR, shoulder [facility], [address] [facility], [place], [address], 0 08:04:47 Medication Orders None recorded. Patient TargetsNo targets recorded. Patient Instructions Encounter Date Encounter Id Patient Instructions Last Modified By Organization Details Last Modified Time 07/22/2019 [id number] PAtients left shoulder was examined along with Xrays taken and reviewed with patient. Pt was offered a cortisone injection and declined. Will place order for PT and will have patient follow up in 6 weeks for recheck. Not available 07/22/2019 09:04:33 08/03/2019 [id number] written HEP issued/reviewed consisting of 3 way UT stretch. Not available 08/03/2019 08:31:29 Reason for Referral Physical Therapist Referral for Bursitis of shoulder Referring Physician: Estevan Ramos, Orthopedic Surgery, Encounter Date: 07/22/2019 Results Created Date Observation Date Name Description Value Unit Range Abnormal Flag Note LastModifiedBy Organization Detail LastModifiedTime Result Notes None recorded. Problems No Known Problems Procedures Surgical History Date Name Laterality Status Provider Name and Address Organization Details Recorded Time 0 [address] Therapeutic exercises completed Geri Aiken, QUALITY CONTROL MICROBIOLOGY SUPERVISOR [address],[facility] [address], [place], [address], [facility] 08/05/2019 11:05:39 0 [address]12 Manual therapy techniques completed Geri Attila, [employer]ALITY CONTROL MICROBIOLOGY SUPERVISOR [address],[facility] [address], [place], [address], [facility] 08/05/2019 10:04:40 0 [id number] Physical Therapy Evaluation (Low) completed JUSTUS HOPE, PT [address], [address], [facility] 08/03/2019 08:25:00 0 [address]668 Therapeutic exercises completed JUSTUS HOPE, PT [address],[facility] [address], [place], [address], [facility] 08/03/2019 08:25:02 0 [id number] Manual therapy techniques completed JUSTUS HOPE, PT [address],[facility] [address], [place], [address], [facility] 08/03/2019 08:25:05 0 Diagnosis Discussion completed [facility] 07/22/2019 08:37:53 9 Other procedure(s) not listed completed [facility] 07/22/2019 08:34:43 Imaging Results None recorded. Procedure Notes None recorded. Medical Equipment None Reported. Allergies No known drug allergies Medications Name Sig Start Date Stop Date Status Note LastModified by Organization Details LastModified Time atorvastatin 10 mg tablet active Not Available Not Available Not Available Zyrtec 10 mg tablet active Not Available Not Available Not Available montelukast 10 mg tablet active Not Available Not Available Not Available hydrochloroth iazide 25 mg tablet active Not Available Not Available Not Available methylprednis olone 4 mg tablets in a dose pack 07/22 completed Not Available Not Available Not Available albuterol sulfate HFA 90 mcg/actuation aerosol inhaler TAKE 2 PUFFS BY MOUTH EVERY 4 HOURS NEEDED active Not Available Not Available No t Available fluticasone propionate 50 mcg/actuation nasal spray,suspens ion active Not Available Not Available Not Available amoxicillin 875 mg-potassium clavulanate 125 mg tablet 07/22 completed Not Available Not Available Not Available ibuprofen active Not Available Not Rachael ilable Not Available hydrochloroth iazide 07/22 completed Not Available Not Available Not Available Qvar RediHaler 80 mcg/actuation HFA breath activated aerosol TAKE 2 PUFFS BY MOUTH TWICE A DAY active Not Available Not Available No t Available Vitals Date Recorded Body height Body mass index (BMI) Body weight Provider Name and Address Organization Details Last Updated DateTime 07/22/2019 157.48 cm 27.4 kg/m2 61435.[address] [facility] 07/22/2019 08:34:34 Date Recorded Body height Body mass index (BMI) Body weight Provider Name and Address Organization Details Last Updated DateTime 08/03/2019 157.48 cm 27.4 kg/m2 52336.86 g JUSTUS HOPE, PT [address] [place] [address], [address], [place] - [facility] 08/03/2019 07:33:01 Social History Question Answer Notes LastModified by Organizat ion Details LastModified Time Tobacco Smoking Status Former Smoker DANNY BUITRAGO [facility] 07/22/2019 08:34:48 Please Choose One Statement That Best Describes Your Ability To Open A Tight Or [place] Jar: Mild Difficulty (2) Information not available 08/03/2019 Please Choose One Statement That Best Describes Your Current Ability To Do Heavy V Belt Builder (e.g. Wash [place], Wash Floors, Etc) No Difficulty (1) Information not available 08/03/2019 Please Choose One Statement That Best Describes Your Current Ability To Carry A Shopping Bag Or Briefcase: No Difficulty (1) Information not available 08/03/2019 Please Choose One Statement That Best Describes Your Ability To Wash Your Back: No Difficulty (1) Information not available 08/03/2019 Please Choose A Statement That Best Describes Your Current Ability To Use A Knife To Cut Food: No Difficulty (1) Information not available 08/03/2019 Please Choose One Statement That Best Describes Your Ability To Participate In Recreational Activities In Which You Take Some Force Or Impact Through Your Arm, Shoulder, Or Hand: No Difficulty (1) Information not available 08/03/2019 During The Past Week, To What Extent Has Your Arm, Shoulder, Or Hand Problem Interfered With Your Normal Social Activities With Family, Friends, Neighbors, Or Groups? Slightly (2) Information not available 08/03/2019 During The Past Week, Were You Limited In Your Work Or Other Regular Daily Activities As A Result Of Your Arm, Shoulder, Or Hand Problem? Slightly Limited (2) Information not available 08/03/2019 Please Rate The Severity Of Your Arm, Shoulder Or Hand Pain: Moderate (3) Information not available 08/03/2019 Please Rate The Severity Of Any Tingling In Your Arm, Shoulder, Or Hand: None (1) Information not available 08/03/2019 Marital Status [facility] Informatio n not available 07/22/2019 During The Past Week, How Much Difficult Have You Had Sleeping Because Of The Pain In Your Arm, Shoulder Or Hand? 2 Information no t available 08/03/2019 How Much Tobacco Do You Smoke? 0.25 PPD Information not available 07/22/2019 How Many Years Have You Smoked Tobacco? 8 Information not available 07/22/2019 Sex: Unknown Functional Status None recorded. Mental Status None recorded. Family History Relationship Description Onset Age of this Age Resolved Age Notes LastModified by Organization Details LastModified Time Father No current problems or disability Not available 07/22 08:35:44 Mother No current problems or disability Not available 07/22 08:35:44 Medical History Condition Response Indigestion/Heartburn N Other N Burning w/ Urination N High Blood Pressure Y Bleeding Disorders N Hernia N Mental Illness/Addiction N Lung Disease N Pneumonia N Congestive Heart Failure N Weight Loss/Energy Loss N Diseases of Eyes/Nose/Throat N Paralysis N Sinusitis N Peptic Ulcer/Stomach Pain N Prior Problem w/ Anesthesia N Varicose Veins N Abnormal Heartbeat N Emotional/ Psychological Problems N Bursitis N TB N Arthritis N Blood Clot N Frequent Urination N Cancer N KidneyStones N Numbness and Tingling N Stroke N Calf Cramps When Walking N Vision or hearing difficulties N Back Disorders N Shortness of Breath N Heart Attack/Surgery N Coronary Heart Disease or Angina N Kidney Infection N Hiatal Hernia N Intestinal Bleeding N Chills or Fever N Lyme Disease N Infectious Disease N Gallbladder Disease N Any Pins or Metal implants N Dizziness and Tingling N Anemia N Gout. N Rhematoid Arthritis N Diverticulitis/Colitis/Bowel Disease N Heart/Chest Pain-Angina N Muscle Weakness N Do you have a Pacemaker ? N Diabetes N Rheumatic Fever N Bowel or Bladder Problems N Weakness N Loss of Hearing N Phlebitis N Severe or Frequent Headaches N Sleeping Problems/Difficulties N Joint Pain/Stiffness N Shortness of Breath. N Asthma Y Thyroid Disease or Goiter N Psoriasis N Epilepsy/Seizures N HIV (AIDS) N Hepatitis N Heart Disease N Osteoporosis N Gynecological HistoryNo gynecological history recorded. Obstetrics History GPAL:G 0 P 0 0 0 0 Past Encounters Encounter ID Performer Location Encounter Start Date Encounter Closed Date Diagnosis/Indication Diagnosis SNOMED-CT Code Diagnosis ICD10 Code Diagnosis Note [id number] Estevan Ramos, DO Main Office [address] [place] [address] 7 07/22/2019 08:04:19 07/22/2019 12:15:44 Pain of shoulder region 02181204 M25.512 Bursitis of shoulder 239 992584 M75.52 [id number] JUSTUS HOPE, PT PHYSICAL THERAPY [address] [place], [place] [address] 08/03/2019 07:25:48 08/03/2019 08:39:33 Bursitis of left shoulder 8138092490 78988 M75.52 [id number] Geri Aiken, QUALITY CONTROL MICROBIOLOGY SUPERVISOR PHYSICAL THERAPY [address] [place] [address] 08/05/2019 09:42:47 08/05/2019 12:06:03 Bursitis of left shoulder 9859697299 71502 M75.52 Health Concerns Section Related Observation LastModified by Organization Detai ls LastModified Time None Recorded Concern Status LastModified by Organization Details LastModified Time None Recorded Advance Directives Directive None Recorded Payers Encounter Date Sequence Insurance Name Policy Number Policy Pulido Covered Member ID Pulido Member ID Guarantor Name 07/22/2019 1 [facility] (MEDICARE REPLACEMENT/A DVANTAGE - PPO) [id number] Gustavo Herrera [id number] Gustavo Herrera 08/03/2019 1 [facility] (MEDICARE REPLACEMENT/A DVANTAGE - PPO) [id number] Gustavo Herrera [id number] Gustavo Herrera 08/05/2019 1 [facility] (MEDICARE REPLACEMENT/A DVANTAGE - PPO) [id number] Gustavo Herrera [id number] Gustavo Herrera Notes Date Note Type Note Provider Name and Address Organization Details Recorded Time 07/22/2019 text/html ShoulderReported bypatient.Initial Location:deltoid Current location:deltoid Initial Quality:sharp Current Quality:sharp Current Severity:pain 6/10 Duration:6months Context:not related to work Modifying factors (Alleviating):NSAIDS Modifying factors (Aggravating):throwing ; bathing; brushing hair; working away from body, across body, or overhead Current Associated Signs and Symptoms:no numbness; no tingling; no weakness Previous Surgery:none Previous Injections:none Previous PT:none Previous care coordinator:noneNotes:DIRECTOR SYSTEMS presents with left shoulder pain ongoing for 6 months. Patient states her pain is 6/10. Patient denies any falls or injury. Estevan Ramos, DO [address] [place] [address], [phone], [facility] 07/24/2019 08:04:50 08/03/2019 text/html PT ShoulderRepor soniya bypatient.Hand Dominance:right Location:left Quality:sharp; stabbing; ache Severity:moderate Duration:8 months Timing:acute Context:overuse; atraumatic Alleviating Factors:ice; medication (ibuprofen) Aggravating Factors:reaching away from body, across body, or overhead; overhead lifting; nighttime Associated Symptoms:no numbness; no tingling;weakness Prior Studies:x ray Work:stay at home Activities/Hobbies/Exe rcise:stopped due to painNotes:bilateral carpal tunnel release, hysterectomy 69 y.o. female referred to skilled outpatient physical therapy by Dr Ramos for left shoulder bursitis. She reports last November/December she helped paint their house. Since then then left shoulder blade pain. She reports left shoulder blade feels swollen all the time, brief sharp pain with reaching. Occasional right shoulder blade pain. 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 She and her travel the country in their mobile home helping [employer]. PLOF: No shoulder pain; no restrictions or limitations. CLOF: Pain with reaching overhead or across the body. Does a lot of lifting at the [employer]. No pain when lifting below shoulder level. Sitting at keyboard/computer typing produces pain. Spasms occur intermittently with pain. Pain is sharp & brief. Stopped kyaking. Pain: 0-8/10 Patient's Goal: Learn what to do about the pain Low complexity due to minimal medical co-morbidities reported. JUSTUS HOPE, PT [address] [place] [address],[address], [address], [facility] - [facility] 08/03/2019 08:32:30 08/05/2019 text/html pt. reports that she is feeling better since last session Geri Aiken, QUALITY CONTROL MICROBIOLOGY SUPERVISOR [address] [place] [address],[place] [address], [place], [address], [facility] - [facility] 08/05/2019 11:38:37 OBGyn Episode No OBEpisode recorded.
--- OUTSIDE RECORDS SUMMARY | 2024-10-27 07:03 | XMS_ITS | Patient Health Record ---
Author Organization [facility] [place] ([address]) Address [address] [place] [address] Care Team Providers Care Fire Fighter [employer] Name Role Phone Yuliana Aldridge MD Primary Care Provider Unav elvi Sasha Bluntn Unavailable [phone] [facility], Provider Unavailable Unavailab le Allergies No Known Allergies Results Component Value Reference Range Notes Spirometry Reviewed date: Interpretation:normal Performing Lab: Notes/Report: normal SpiroPreBronchodilator_FVC 2.32 SpiroPostBronchodilator_FEF25_75 0 SpiroPreBronchodilator_FEF25_75 1.35 SpiroPreBronchodilator_FEV1 1.74 SpiroPrecentPredictionPost_FEF25_75 0 SpiroPrecentPredictionPost_FEV1 0 SpiroPrecentPredictionPost_FEV1_OVER_FVC 0 SpiroPrecentPredictionPost_FVC 0 SpiroPrecentPredictionPre_FEF25_75 71.8 SpiroPrecentPredictionPre_FEV1 83.7 SpiroPrecentPredictionPre_FEV1_OVER_FVC 98 SpiroPrecentPredictionPre_FVC 85 SpiroPredicted_FEF25_75 1.88 SpiroPreBronchodilator_FEV1_OVER_FVC 74.84 SpiroPreBronchodilator_PEF 4.37 SpiroPostBronchodilator_FVC 0 SpiroPostBronchodilator_FEV1 0 SpiroPostBronchodilator_FEV1_OVER_FVC 0 SpiroPostBronchodilator_PEF 0 SpiroPredicted_FVC 2.73 SpiroPredicted_FEV1 2.08 SpiroPredicted_FEV1_OVER_FVC 76.36 SpiroPredicted_PEF 5.33 Reason For Referral No Information Medications Medication SIG (Take, Route, Frequency, Duration) Notes Start Date End Date Status Pantoprazole Sodium 40 MG 1 tab(s) orally once a day Active Atorvastatin Calcium 10 MG 1 tab(s) orally once a day Active Flonase Allergy Relief 50 MCG/ACT 2 spray(s) intranasally (avoid nasal septum) once a day for 30 day(s) Active Singulair 10 MG 1 tab(s) orally once a day Active Qvar RediHaler 80 MCG/ACT 2 puff(s) inhaled bid Active Carol Allergy 180 MG 1 tab(s) orally once a day Active EPINEPHrine 0.3 MG/0.3ML as directed Injection as needed for 30 days 12/02/2023 Active Azelastine HCl 137 MCG/SPRAY 2 sprays in each nostril Nasally Twice a day for 30 days 12/02/2023 Active CAROL 24 HOUR ALLERGY 180 mg 1 tab(s) orally once a day Active QVAR 80 mcg/inh 2 puff(s) inhaled bid Active PROAIR HFA 90 mcg/inh 2 puff(s) inhaled Q4-6 hours, PRN and per the asthma action plan Active SINGULAIR 10 mg 1 tab(s) orally once a day Active NASAL WASHES N/A as directed intranasally as needed Active Fesoterodine Fumarate ER 4 MG 1 tablet Orally Once a day Active AEROCHAMBER MDI SPACER - MOUTHPIECE (ADULT) N/A DIRECTED PO PER ASTHMA ACTION PLAN for 30 DAY(S) *Please review for potential replacement for e-prescription and drug interaction check* 02/12/2023 Active Immunizations Vaccine Route Administration Date Status Comme nts Flucelvax Unknown 03/01/2019 Administered Influenza Unknown 03/01/2016 Administered Portal Infor mation Influenza Unknown 03/09/2018 Others NOC Fluzone Quadrivalent Unknown 09/21/2018 Refused NOC Pneumovax 23 Unknown 09/08/2017 Refused Pneumovax 23 Unknown 03/19/2018 Administered Social History Tobacco Use: Social History Observation Description Date Details (start date - stop date) Former Smoker NA - NA Smoking Smart Form: Question Answer Notes Are you a: former smoker How long it has been since you last smoked? > 10 years Tobacco Control (Standard) Question Answer Notes Tobacco use: Former smoker Problems Problem Type SNOMED Code ICD Code Onset Dates Problem Status W/U Status Risk Notes Problem Chronic allergic conjunctivitis (67881647) Other chronic allergic conjunctivitis (H10.45) Active confirmed Problem Otitis media of right ear (4542643903692205 ) Otitis media in diseases classified elsewhere, right ear (H67.1) Active confirmed Problem Allergic rhinitis caused by pollen (disorder) (27507515) Allergic rhinitis due to pollen (J30.1) Active confirmed Problem Allergic rhinitis (87093927) Other allergic rhinitis (J30.89) Active confirmed Problem Uncomplicated mild persistent asthma (315150564) Mild persistent asthma, uncomplicated (J45.30) Active confirmed Problem 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) Active confirmed Problem Allergic rhinitis caused by pollen (disorder) (01249665) Allergic rhinitis due to pollen (J30.1) Active confirmed Problem Cough (34426142) Cough (R05) Active confirmed Problem Food allergy (021468106) Allergy to other foods (Z91.018) Active confirmed Vital Signs Oximetry 96 % 12/02/2023 Blood pressure diastolic 85 mm Hg 12/02/2023 Height 63 in 12/02/2023 Blood pressure systolic 145 mm Hg 12/02/2023 Weight 166.8 lbs 12/02/2023 BMI 29.54 kg/m2 12/02/2023 Encounters Encounter Location Date Provider Diagnosis [address] [address] 11/14/2023 Provider Z[facility]-Migration Acute nasopharyngitis [common cold] J00 ; Mild persistent asthma, uncomplicated J45.30 and Allergic rhinitis due to pollen J30.[address] [address] 11/25/2023 Maggie Blunt Mild persistent asthma, uncomplicated J45.30 ; Allergic rhinitis due to pollen J30.1 ; Congenital stenosis and stricture of esophagus Q39.3 ; Other allergic rhinitis J30.89 and Other chronic allergic conjunctivitis H10.[address] [address] 12/02/2023 Maggie Blunt Mild persistent asthma, uncomplicated J45.30 ; Allergic rhinitis due to pollen J30.1 ; Congenital stenosis and stricture of esophagus Q39.3 ; Other allergic rhinitis J30.89 and Other chronic allergic conjunctivitis H10.45 [facility] [address] [facility] [address] [place] [address] 12/02/2023 Maggie Blunt Assessments Encounter Date Diagnosis (ICD Code) Assessment Notes Treatment Notes Treatment Clinical Notes Section Notes 11/14/2023 Acute nasopharyngitis [common cold] (ICD-10 - J00) 11/14/2023 Mild persistent asthma, uncomplicated (ICD-10 - J45.30) 11/25/2023 Mild persistent asthma, uncomplicated (ICD-10 - J45.30) Gustavo has a history of persistent asthma, which is under good control. ACT 23. CXR 03/2017 showed hiatal hernia. Spirometry today is normal. Since doing well, continue intermittent QVAR and Singulair. Asthma action plan reviewed. 11/25/2023 Allergic rhinitis due to pollen (ICD-10 - J30.1) Gustavo clearly suffers from atopic disease based upon our skin testing with sensitivity to mold and grass. Accordingly, we have introduced a new, aggressive medication regimen, discussed nasal washes and allergy-specific avoidance measures. Gustavo is interested in starting immunotherapy. We discussed that skin testing would need to be repeated since last performed in 2017. 12/02/2023 Mild persistent asthma, uncomplicated (ICD-10 - J45.30) Gustavo has a history of persistent asthma, which is under good control. ACT 20. CXR 03/2017 showed hiatal hernia. Spirometry last month is normal. Since doing well, continue intermittent QVAR and Singulair. Asthma action plan reviewed. 12/02/2023 Allergic rhinitis due to pollen (ICD-10 - J30.1) Given the history and symptoms, skin testing was performed to common aeroallergens to determine atopic status. Gustavo clearly suffers from atopic disease based upon our skin testing today. Accordingly, we have introduced a new, aggressive medication regimen, discussed nasal washes and allergy-specific avoidance measures. We also discussed adjunctive therapies including subcutaneous, specific allergen immunotherapy as relates to the treatment and prevention of atopic disease. She is currently considering the risks, benefits and alternatives to this care. Risks: bleeding, infection, allergic reaction, anaphylaxis; Benefits: reduced need for medications, improved symptoms, disease modification. 12/02/2023 Congenital stenosis and stricture of esophagus (ICD-10 - Q39.3) Ty was diagnosed with hiatal hernia, Schatzki Ring and dilation was peformed. 11/25/2023 Congenital stenosis and stricture of esophagus (ICD-10 - Q39.3) Ty was diagnosed with hiatal hernia, Schatzki Ring and dilation was peformed. 11/14/2023 Allergic rhinitis due to pollen (ICD-10 - J30.1) 11/25/2023 Other allergic rhinitis (ICD-10 - J30.89) Follow allergen avoidance, meds as above 12/02/2023 Other allergic rhinitis (ICD-10 - J30.89) Follow allergen avoidance, meds as above 12/02/2023 Other chronic allergic conjunctivitis (ICD-10 - H10.45) Given ocular signs and symptoms I encouraged allergy avoidance measures and meds as above. If symptoms persist, consider adding additional medications including intraocular antihistamine/mas t cell stabilizer, PRN 11/25/2023 Other chronic allergic conjunctivitis (ICD-10 - H10.45) Given ocular signs and symptoms I encouraged allergy avoidance measures and meds as above. If symptoms persist, consider adding additional medications including intraocular antihistamine/mas t cell stabilizer, PRN 11/25/2023 Other 12/02/2023 Other Plan Of Treatment No Information Insurance Providers Payer Name Payer Address Payer Phone Subscriber Number Group Number Insured Name Patient Relationship to Insured Coverage Start Date Coverage End Date UHC Medicare [address] [address] [place] [address] [phone] [id number] Gustavo Herrera Self - patient is the insured Medical (General) History Medical History History ICD Code Hypertension Diverticulosis Hyperlipidemia Asthma Globus Hystericus Surgical History Surgery Date(Month/Year) Section 03/17/1980 Right Carpal Tunnel Release 09/29/2010 Left Carpal Tunnel Release 05/01/2015 Upper GI - Dr. Barrios 04/29/17 Cataract surgery 06/2018 & 07/2018 Hysterectomy 02/18/2019 Hospitalization History Reason Date(Month/Year) see above
[2024-10-27 09:31] LABS: Alanine Aminotransferase 23 U/L (6-35); Albumin Level 4.2 g/dL (3.5-5.1); Alkaline Phosphatase 93 U/L (38-126); Anion Gap 7 mmol/L (4-12); Aspartate Amino Transferase 31 U/L (14-36); Bilirubin,Total 0.4 mg/dL (0.2-1.3); Blood Urea Nitrogen 18 mg/dL (7-17); Calcium 9.4 mg/dL (8.4-10.2); Carbon Dioxide 25 mmol/L (22-30); Chloride 105 mmol/L (98-107); Cholesterol 141 mg/dL (0-200); Estimated Glomerular Filt Rate > 60; Glucose 86 mg/dL (65-110); HDL Direct 47 mg/dL; Potassium 4.2 mmol/L (3.4-5.0); Sodium 137 mmol/L (137-145); Triglycerides 136 mg/dL (<150)
[2024-10-27 09:42] LABS: LDL Cholesterol Direct 65 mg/dL
== END 2024-10-27 07:01 | disposition home or self-care (01) ==
LOC: ANHLAB 07:01
PROVIDERS: PCP Family Medicine; Visit Provider Family Medicine
DX: R73.9 Hyperglycemia, unspecified (principal); E78.2 Mixed hyperlipidemia; R73.03 Prediabetes
CPT/HCPCS: 36415; 80053; 80061; 83036

== ENCOUNTER 2024-11-30 10:52 | Outpatient (CLI) | payer MEDICARE, SELFPAY ==
--- NOTE | ~2024-11-30 | MM_ITS ---
EXAMINATION: MM screening dane BI w marek HISTORY: Screening mammogram TECHNIQUE: Craniocaudal and mediolateral oblique 3-D tomosynthesis images were obtained and synthetic 2-D images were generated. CAD analysis was submitted and interpreted. COMPARISON: 09/07/2023, 03/01/2021 BREAST PARENCHYMAL COMPOSITION:Not Dense. There are scattered areas of fibroglandular density. FINDINGS: No suspicious mass, calcification, or architectural distortion are identified in either duyen ast to suggest malignancy. There has been no suspicious interval change. IMPRESSION: No mammographic evidence of malignancy. Recommend routine screening mammography in one year. BI-RADS Category 1: Negative Reviewed, dictated and finalized at location .
--- OUTSIDE RECORDS SUMMARY | 2024-11-30 11:05 | XMS_ITS | Clinical Summary ---
Author Organization [facility] Address [address] [address] Phone Care Team Providers Care Night Warehouse Selector Name Role Phone Unavailable Primary Care Provider [...]
--- OUTSIDE RECORDS SUMMARY | 2024-11-30 11:05 | XMS_ITS | Data Portability ---
Author Organization [place] [facility], Main Office [address] [place] [address] Assessment Encounter Date Assessment Date Assessment LastModified [...] Patient was referred to [facility] for evaluation and treatment of [...] None recorded. Imaging XR, shoulder 2019 020 [facility], [address] [facility] [address], [place], [address], 0 08:04:47 Medication Orders None recorded. Patient TargetsNo targets recorded. Patient Instructions Encounter Date Encounter Id Patient Instructions Last Modified By Organization Details Last Modified Time 07/22/2019 [id number] PAtients left shoulder was examined along with Xrays taken and reviewed with patient. Pt was offered a cortisone injection and declined. Will place order for PT and will have patient follow up in 6 weeks for recheck. Not available 07/22/2019 09:04:33 08/03/2019 [id number] written HEP issued/reviewed consisting of 3 way [...] and Address Organization Details Recorded Time 0 [address]9030 Therapeutic exercises completed Geri Aiken, BOARD FINISHER [address],[facility] [address], [place], [address], [facility] 08/05/2019 11:05:39 0 [id number] Manual therapy techniques completed Geri Aiken, BOARD FINISHER [address],[facility] [address], [place], [address], [facility] 08/05/2019 10:04:40 0 [id number] Physical Therapy Evaluation (Low) completed JUSTUS HOPE, PT [address], [address], [facility] 08/03/2019 08:25:00 0 [id number] Therapeutic exercises completed JUSTUS HOPE, PT [address],[facility] [address], [place], [address], [facility] 08/03/2019 08:25:02 0 [id number] Manual therapy techniques completed JUSTUS HOPE, PT [address],[facility] [address], [place], [address], [facility] 08/03/2019 08:25:05 0 Diagnosis Discussion completed [facility] 07/22/2019 08:37:53 9 Other procedure(s) not listed completed [facility] 07/22/2019 08:34:43 Imaging Results None recorded. Procedure [...] Updated DateTime 07/22/2019 157.48 cm 27.4 kg/m2 58217.86 g DANNY BUITRAGO [facility] 07/22/2019 08:34:34 Date Recorded Body height Body mass index (BMI) Body weight Provider Name and Address Organization Details Last Updated DateTime 08/03/2019 157.48 cm 27.4 kg/m2 88752.86 g JUSTUS HOPE, PT [address] [place] [address], [address], [place] - [facility] 08/03/2019 07:33:01 Social History Question Answer Notes LastModified by Organizat ion Details LastModified Time Tobacco Smoking Status Former Smoker DANNY BUITRAGO [place], [place] - [facility] 07/22/2019 08:34:48 Please Choose One Statement That Best Describes Your Ability To Open A Tight Or New Jar: Mild Difficulty (2) Information not available 08/03/2019 Please Choose One Statement That Best Describes Your Current Ability To Do Heavy Process Planner (e.g. Wash Multani, Wash Floors, Etc) No [...] (1) Information not available 08/03/2019 Marital Status Informatio n not available 07/22/2019 During The [...] N Varicose Veins N Abnormal Heartbeat N Bursitis N Emotional/ Psychological Problems N TB N Arthritis N Blood Clot N Frequent Urination N Cancer N Stroke N Numbness and Tingling N KidneyStones N Calf Cramps When Walking N Back Disorders N Vision or hearing difficulties N Shortness of Breath N Coronary Heart Disease or Angina N Heart Attack/Surgery N Kidney Infection N Hiatal Hernia N [...] SNOMED-CT Code Diagnosis ICD10 Code Diagnosis Note [id number] Estevan Ramos, DO Main Office [address] [place], [place] [address] 07/22/2019 08:04:19 07/22/2019 12:15:44 Pain of shoulder region 40804513 M25.512 Bursitis of shoulder 239 061024 M75.52 [id number] [facility], PT PHYSICAL THERAPY [address] [place] [address] 08/03/2019 07:25:48 08/03/2019 08:39:33 Bursitis of left shoulder 3765465490 43206 M75.52 [id number] Geri Aiken PTA PHYSICAL THERAPY [address] [place] [address] 08/05/2019 09:42:47 08/05/2019 12:06:03 Bursitis of left shoulder 3825332116 36112 M75.52 Health Concerns Section Related Observation LastModified by Organization Detai ls LastModified Time None Recorded Concern Status LastModified by Organization Details LastModified Time None Recorded Advance Directives Directive None Recorded Payers Insurance Date Sequence Insurance Name Policy Number Policy Pulido Covered Member ID Pulido Member ID Guarantor Name 08/11/2019 1 [facility] (MEDICARE REPLACEMENT/A DVANTAGE - PPO) [id number] Gustavo Herrera [id number] Gustavo Herrera Notes Date Note Type Note [...] Previous Surgery:none Previous Injections:none Previous PT:none Previous transitional care nurse:noneNotes:GRIP WRAPPER presents with left shoulder pain ongoing for 6 months. Patient states her pain is 6/10. Patient denies any falls or injury. Estevan Ramos, DO [address] [place] [address], [phone], [facility] 07/24/2019 08:04:50 08/03/2019 text/html PT ShoulderRepor [...] medical co-morbidities reported. [facility]US HOPE, PT [address] [place] [address], [address], [facility] - [facility] 08/03/2019 08:32:30 08/05/2019 text/html pt. reports that she is feeling better since last session Geri Aiken, BOARD FINISHER [address] [place] [address],[place] [address], [place], [address], [facility] - [facility] 08/05/2019 11:38:37 OBGyn Episode No OBEpisode recorded.
--- OUTSIDE RECORDS SUMMARY | 2024-11-30 11:06 | XMS_ITS | Patient Health Record ---
Author Organization [facility] [place] ([address]) Address [address] [facility] [address] [place] [address] Care Team Providers Care Wage And Salary Administrator Name Role Phone Yuliana Aldridge MD Primary Care Provider Maggie Reagan Unavailable [phone] Allergies No Known Allergies Reason For Referral No Information Medications Medication SIG (Take, Route, Frequency, Duration) Notes Start Date End Date Status Pantoprazole Sodium 40 MG 1 tab(s) orally once a day Active Atorvastatin Calcium 10 MG 1 tab(s) orally once a day Active Flonase Allergy Relief 50 MCG/ACT 2 spray(s) intranasally (avoid nasal septum) once a day; Duration: 30 day(s) Active Singulair 10 MG 1 tab(s) orally once a day Active Qvar RediHaler 80 MCG/ACT 2 puff(s) inhaled bid Active Carol Allergy 180 MG 1 tab(s) orally once a day Active EPINEPHrine 0.3 MG/0.3ML as directed Injection as needed; Duration: 30 days 12/02/2023 Active Azelastine HCl 137 MCG/SPRAY 2 sprays in each nostril Nasally Twice a day; Duration: 30 days 12/02/2023 Active CAROL 24 HOUR [...] (ADULT) N/A DIRECTED PO PER ASTHMA ACTION PLAN; Duration: 30 DAY(S) *Please review for potential replacement [...] Status Risk Notes Problem Chronic allergic conjunctivitis (01768088) Other chronic allergic conjunctivitis (H10.45) Active confirmed Problem Otitis media of right ear (0272829016293784 ) Otitis media in diseases classified elsewhere, right ear (H67.1) Active confirmed Problem Allergic rhinitis caused by pollen (disorder) (66650091) Allergic rhinitis due to pollen (J30.1) Active confirmed Problem Allergic rhinitis (31924453) Other allergic rhinitis (J30.89) Active confirmed Problem Uncomplicated mild persistent asthma (699123035) Mild persistent asthma, uncomplicated (J45.30) Active confirmed Problem 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) Active confirmed Problem Allergic rhinitis caused by pollen (disorder) (50142219) Allergic rhinitis due to pollen (J30.1) Active confirmed Problem Cough (01324494) Cough (R05) Active confirmed Problem Food allergy (055363883) Allergy to other foods (Z91.018) Active confirmed Vital Signs Blood pressure diastolic 85 mm Hg 12/02/2023 Oximetry 96 % 12/02/2023 Height 63 in 12/02/2023 Blood pressure systolic 145 mm Hg 12/02/2023 Weight 166.8 lbs 12/02/2023 BMI 29.54 kg/m2 12/02/2023 Encounters Encounter Location Date Provider Diagnosis [facility] [address] [address] 12/02/2023 Maggie Blunt Mild persistent asthma, uncomplicated J45.30 ; Allergic rhinitis due to pollen J30.1 ; Congenital stenosis and stricture of esophagus Q39.3 ; Other allergic rhinitis J30.89 and Other chronic allergic conjunctivitis H10.45 [facility] [address] [address] 12/02/2023 Maggie Sturm Assessments Encounter Date Diagnosis (ICD Code) Assessment Notes Treatment Notes Treatment Clinical Notes Section Notes 12/02/2023 Mild persistent asthma, uncomplicated (ICD-10 - [...] and stricture of esophagus (ICD-10 - Q39.3) Gustavo was diagnosed with hiatal hernia, Schatzki Ring and dilation was peformed. 12/02/2023 Other allergic rhinitis (ICD-10 - J30.89) Follow allergen avoidance, meds as above 12/02/2023 Other chronic allergic conjunctivitis (ICD-10 - H10.45) Given ocular signs and symptoms I encouraged allergy avoidance measures and meds as above. If symptoms persist, consider adding additional medications including intraocular antihistamine/mas t cell stabilizer, PRN 12/02/2023 Other Plan Of Treatment No Information Insurance Providers Payer Name Payer Address Payer Phone Subscriber Number Group Number Insured Name Patient Relationship to Insured Coverage Start Date Coverage End Date UHC Medicare [address] [address] [place] [address] [id number] Gustavo Herrera Self - patient is the [...]
--- OUTSIDE RECORDS SUMMARY | 2024-11-30 11:06 | XMS_ITS ---
Author Organization [facility] [place] ([address]) Address [address] [facility] [address] [place] [address] Care Team Providers Care Editorial Cartoonist Name Role Phone Yuliana Aldridge MD Primary Care Provider Unav saeidable Maggie Blunt Unavailable [phone] [facility], Provider Unavailable Unavailab le REASON FOR VISIT [facility] Conversion Encounter Medications Medication SIG (Take, Route, [...] 300 MG 1 cap(s) orally every 12 hours; Duration: 10 day(s) 02/05/2023 Active Singulair 10 MG 1 tab(s) orally once a day Active predniSONE 20 MG patient to call md for instruction on dose. orally Call MD for frequency; Duration: 30 day(s) Not-Taking Pantoprazole Sodium 40 MG [...] once a day; Duration: 30 day(s) Active AEROCHAMBER MDI SPACER - MOUTHPIECE (ADULT) N/A DIRECTED PO PER ASTHMA ACTION PLAN; Duration: 30 DAY(S) *Please review for potential replacement for e-prescription and drug interaction check* 02/12/2023 Active Encounters Encounter Location Date Provider Diagnosis [facility] - [address] [address] 11/14/2023 Provider JOSE-Tone Acute nasopharyngitis [common cold] J00 ; Mild [...] MG 1 cap(s) orally ever y 12 hours; Duration: 10 day(s) 02/05/2023 Singulair 10 MG 1 tab(s) orally once a day NASAL WASHES N/A DIRECTED INTRANASALLY NEEDED *Please review fo r potential replacement for e-prescription and drug interaction check* AEROCHAMBER MDI SPACER - MOUTHPIECE (ADULT) N/A DIRECTED PO PER ASTHMA ACTION PLAN; Duration: 30 DAY(S) 02/12/2023 *Please review for potential replacement for e-prescription and drug interaction check* Progress Notes * Gustavo VALENZUELA ADOB:1950 ([age] yo F)Acc No.[id number]:11/14/2023 Patient: Gustavo GARCIA A Provider: Emily Wayne :1950 A ge:73 Y S ex:Female Date:11/14/2023 [facility] Pcp:Yuliana Aldridge MD Subjective: * Chief Complaints: * [facility] . [facility] Conversion Encounter. * Medical History: * Medications: [...] * Electronic signature of Shelli GARCIA-Migration on 11/30/2024 at 11:05 AM CDT Sign off status: Pending * Provider: Emily modi Migration Date: 11/14/2023 Generated for Vita meza/Soledad/Raquel on: 11/30/2024 11:05 AM CDT
== END 2024-11-30 10:53 | disposition home or self-care (01) ==
LOC: ANHIMG 10:55
PROVIDERS: PCP Family Medicine; Visit Provider Nurse Practitioner Family
DX: Z12.31 Encounter for screening mammogram for malignant neoplasm of breast (principal)
CPT/HCPCS: 77063; 77067